=== PATIENT | male | born 1975 | race Caucasian/White ===

== ENCOUNTER 2023-11-23 18:53 | Emergency (ER) | payer MEDICAID ==
[~2023-11-23] VITALS: Ht 172.7 cm; Wt 112.9 kg
[2023-11-23 19:12] VITALS: BP 132/81; PULSE 80; RESP 16; TEMP 98.7; O2SAT 100
[2023-11-23] MEDS ORDERED: INDO-304 PO (19:35)
[2023-11-23] MEDS ORDERED: PRED20TA5 PO (19:35)
[2023-11-23] MEDS: predniSONE 20 MG TAB PO ONE (20:01)
[2023-11-23] MEDS: INDOMETHACIN 25 MG CAP PO ONE (20:01)
[2023-11-23 20:02] VITALS: BP 132/81; PULSE 80; RESP 16; TEMP 98.7; O2SAT 100
== END 2023-11-23 20:03 | disposition home or self-care (01) ==
LOC: MED 18:53
DX: M10.071 Idiopathic gout, right ankle and foot (principal); Z79.899 Other long term (current) drug therapy
CPT/HCPCS: 99283; J7512

== ENCOUNTER 2024-01-04 14:43 | Emergency (ER) | payer SELFPAY ==
[~2024-01-04] VITALS: Ht 167.6 cm; Wt 109.4 kg
[~2024-01-04 14:43] MED LIST: INDO-304 PO; PRED20TA5 PO
[2024-01-04 15:06] VITALS: BP 120/79; PULSE 83; RESP 18; TEMP 98.2; O2SAT 100
[2024-01-04] MEDS ORDERED: DICL100G32 TP (16:23)
[2024-01-04] MEDS ORDERED: PRED20TA5 PO (16:23)
[2024-01-04] MEDS ORDERED: INDO-304 PO (16:23)
[2024-01-04] MEDS: INDOMETHACIN 25 MG CAP PO ONE (16:43)
[2024-01-04] MEDS: DEXAMETHASONE 10 MG/ML VIAL IM ONE (16:44)
--- NOTE | 2024-01-04 16:47 | NUR ---
Patient discharged with v/s stable. Written and verbal after care instructions given FOR GOUT Patient alert, oriented and verbalized understanding of instructions. Ambulatory with steady gait. All questions addressed prior to discharge. ID band removed. Patient advised to follow up with PMD. Rx of DICLOFENAC SODIUM,INDOMETHACIN,PREDNISONE given. Opportunity to ask questions provided and answered.
== END 2024-01-04 16:47 | disposition home or self-care (01) ==
LOC: MED 14:43
DX: M10.9 Gout, unspecified (principal); R03.0 Elevated blood-pressure reading, without diagnosis of hypertension; Z79.899 Other long term (current) drug therapy
CPT/HCPCS: 96372; 99283; J1100